=== PATIENT | female | born 1950 | race Caucasian/White ===

== ENCOUNTER 2019-07-09 13:30 | Emergency (ER) | payer BC ==
[~2019-07-09] VITALS: Ht 157.5 cm; Wt 69.4 kg
[2019-07-09] MEDS ORDERED: WELLBUTRIN XL150 MG PO (14:48)
[2019-07-09 14:56] VITALS: BP 154/83
== END 2019-07-09 14:58 | disposition home or self-care (01) ==
LOC: M.ERS 13:30
DX: F32.9 Major depressive disorder, single episode, unspecified (principal); J44.9 Chronic obstructive pulmonary disease, unspecified; F17.210 Nicotine dependence, cigarettes, uncomplicated